=== PATIENT | female | born 2000 | race Caucasian/White ===

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

== ENCOUNTER → 2019-02-16 | Outpatient (CLI) | payer OTHER ==
[~2019-02-16] MED LIST changes: +NAPR-837 PO; -NAPR500T PO
[2019-02-16 13:14] LABS: BASO % 0.3 % (0.0-1.0); EOS # 0.1 10^3/uL (0.0-0.5); EOS % 1.1 % (0.0-3.0); HEMATOCRIT 36.4 % (36.0-47.0); HEMOGLOBIN 12.3 g/dl (12.0-15.5); LYMPH # 1.9 10^3/uL (1.5-5.0); LYMPH % 18.2 % (24.0-44.0); MEAN CORPUSCULAR HGB CONC 33.8 g/dl (32.0-36.5); MEAN CORPUSCULAR VOLUME 94.8 fl (80.0-96.0); MONO # 0.6 10^3/uL (0.0-0.8); MONO % 5.7 % (0.0-5.0); NEUTROPHILS # 7.8 10^3/uL (1.5-8.5); NEUTROPHILS % 74.2 % (36.0-66.0); PLATELET COUNT, AUTOMATED 267 10^3/uL (150-450); RED BLOOD COUNT 3.84 10^6/uL (4.00-5.40); WHITE BLOOD COUNT 10.4 10^3/uL (4.0-10.0)
[2019-02-16 14:40] LABS: CHLAMYDIA DNA AMPLIFICATION NEGATIVE (NEGATIVE); GC DNA AMPLIFICATION NEGATIVE (NEGATIVE)
[2019-02-16 16:06] LABS: HIV 1&2 SCREEN CENTAUR NEGATIVE (NEGATIVE); RUBELLA IgG QUALITATIVE IMMUNE (IMMUNE)
== END ==
LOC: M SMT 10:34
PROVIDERS: ATTEND Advanced Practice Midwife
DX: Z34.01 Encounter for supervision of normal first pregnancy, first trimester (principal); Z36.89 Encounter for other specified antenatal screening

== ENCOUNTER → 2019-03-17 | Outpatient (CLI) | payer OTHER | LOC: M PLALAB 10:13 → M LAB 10:13 | PROVIDERS: ATTEND Specialist | DX: Z13.79 Encounter for other screening for genetic and chromosomal anomalies (principal) ==

== ENCOUNTER → 2019-03-31 | Outpatient (CLI) | payer OTHER | LOC: M PLALAB 09:32 | PROVIDERS: ATTEND Specialist | DX: Z34.82 Encounter for supervision of other normal pregnancy, second trimester (principal); Z3A.00 Weeks of gestation of pregnancy not specified ==

== ENCOUNTER → 2019-04-23 | Outpatient (CLI) | payer OTHER ==
--- NOTE | 2019-04-23 11:49 | REP ---
Clinical: Anatomical evaluation. Comparison: None . Findings: Examination demonstrates a single live intrauterine in cephalic presentation. motion is identified by technologist. Placenta is noted posterior and grade zero without evidence for placenta previa or abruption. Amniotic fluid volume is normal. Cervix measures 4.2 cm in length and appears closed. No evidence for nuchal cord. Gestational age by LMP 18 weeks 0 days with ZENAIDA 09/24/2019 . Gestational age by current measurements 18 weeks 2 days with ZENAIDA 09/22/2019 . FHR equals 144 beats per minute. BPD 4.0 cm 18 weeks 1 day HC 14.8 cm 17 weeks 6 days AC 12.7 cm 18 weeks 2 days FL 2.8 cm 18 weeks 3 days HL 2.8 cm 18 weeks 6 days HC/AC ratio 1.17 Estimated weight 234 grams ( or 59th percentile). Anatomical assessment demonstrates normal structures including cranium, choroid plexus, cavum, cerebellum/posterior fossa, diaphragm, stomach, cord insertion/three-vessel cord, kidneys/bladder, spine, and extremities. Impression: 1. Single live intrauterine in cephalic presentation demonstrating appropriate interval growth. 2. Limited evaluation of the facial features, lungs, four-chamber heart and ventricular outflow tracts. Remainder of the anatomical assessment is complete and normal. Electronically Signed by Samy Christy MD 04/23/2019 11:40 A
== END ==
LOC: M RAD 10:23
PROVIDERS: ATTEND Specialist
DX: Z34.02 Encounter for supervision of normal first pregnancy, second trimester (principal); Z36.89 Encounter for other specified antenatal screening; Z3A.18 18 weeks gestation of pregnancy

== ENCOUNTER → 2019-05-18 | Outpatient (CLI) | payer OTHER ==
--- NOTE | 2019-05-18 07:27 | REP ---
Clinical: Anatomical evaluation. Comparison: 04/23/2019 . Findings: Examination demonstrates a single live intrauterine in variable presentation. motion is identified by technologist. Placenta is noted posterior/fundal and grade I without evidence for placenta previa or abruption. Amniotic fluid volume is normal. Cervix measures 5.0 cm in length and appears closed. No evidence for nuchal cord. Gestational age by LMP 21 weeks 4 days with ZENAIDA 09/24/2019 . Gestational age by current measurements 21 weeks 6 days with ZENAIDA 09/22/2019 . FHR equals 139 beats per minute. Estimated weight 437 grams ( 46 percentile). Anatomical assessment demonstrates normal structures including cranium, choroid plexus, cavum, cerebellum/posterior fossa, facial features, lungs, four-chamber heart/left ventricular outflow tract, diaphragm, stomach, cord insertion/three-vessel cord, kidneys/bladder, spine, and extremities. With the exception of the right cardiac ventricular outflow tract which is incompletely evaluated, the remainder of the anatomical assessment is complete and normal. Impression: Single live intrauterine in variable presentation demonstrating appropriate interval growth. Essentially complete normal anatomical assessment. Electronically Signed by Samy Christy MD 05/18/2019 07:18 A
== END ==
LOC: M RAD 06:04
PROVIDERS: ATTEND Advanced Practice Midwife
DX: Z34.02 Encounter for supervision of normal first pregnancy, second trimester (principal); Z36.89 Encounter for other specified antenatal screening

== ENCOUNTER → 2019-06-16 | Outpatient (CLI) | payer OTHER ==
--- NOTE | 2019-06-16 18:48 | REP ---
OB ULTRASOUND: Real-time sonographic evaluation of the gravid uterus performed. There is a single living intrauterine gestation. The estimated gestational age is 25 weeks 5 days, EDC 09/24/2019. Today's measurements indicate appropriate growth. BPD 65 mm = 26 weeks 1 days, 60th percentile HC 229 mm = 25 weeks 0 days, 33rd percentile AC 223 mm = 26 weeks 5 days, 71st percentile FL 51 mm = 27 weeks 2 days, 85th percentile HC/AC ratio 1.03, within normal range. Estimated weight 974 grams, 71st percentile. Cervix is closed and measures 6 cm in length. heart rate 131 beats per minute. SEEN/GROSSLY UNREMARKABLE Lateral ventricles yes Posterior fossa yes Upper lip yes Four-chamber heart yes LVOT yes RVOT yes Stomach yes Cord insertion yes Three vessel cord yes Kidneys yes Bladder yes Spine yes position: Vertex. Placenta: Posterior and grade 1 with no previa or abruption. Amniotic fluid: Within normal limits. Electronically Signed by Jaden Gutierrez MD 06/16/2019 08:24 P
== END ==
LOC: M RAD 15:34
PROVIDERS: ATTEND Advanced Practice Midwife
DX: Z34.02 Encounter for supervision of normal first pregnancy, second trimester (principal); Z36.89 Encounter for other specified antenatal screening; Z3A.26 26 weeks gestation of pregnancy

== ENCOUNTER → 2019-06-25 | Outpatient (REF) | payer OTHER ==
[2019-06-25 12:29] LABS: HEMATOCRIT 29.4 % (36.0-47.0); HEMOGLOBIN 9.9 g/dl (12.0-15.5); MEAN CORPUSCULAR HEMOGLOBIN 32.8 pg (27.0-33.0); MEAN CORPUSCULAR HGB CONC 33.7 g/dl (32.0-36.5); MEAN CORPUSCULAR VOLUME 97.4 fl (80.0-96.0); PLATELET COUNT, AUTOMATED 223 10^3/uL (150-450); RED BLOOD COUNT 3.02 10^6/uL (4.00-5.40); WHITE BLOOD COUNT 9.3 10^3/uL (4.0-10.0)
== END ==
LOC: M PLALAB 09:27
PROVIDERS: ATTEND Advanced Practice Midwife
DX: Z34.02 Encounter for supervision of normal first pregnancy, second trimester (principal); Z36.89 Encounter for other specified antenatal screening

== ENCOUNTER → 2019-07-08 | Outpatient (CLI) | payer OTHER | LOC: M LAB 07:50 | PROVIDERS: ATTEND Advanced Practice Midwife | DX: Z34.02 Encounter for supervision of normal first pregnancy, second trimester (principal); R73.02 Impaired glucose tolerance (oral) ==

== ENCOUNTER → 2019-09-01 | Outpatient (REF) | payer OTHER ==
[~2019-09-01] MED LIST changes: +ACET-683 PO
== END ==
LOC: M SFHCWAGY 16:47
PROVIDERS: ATTEND Advanced Practice Midwife
DX: Z36.89 Encounter for other specified antenatal screening (principal); Z34.03 Encounter for supervision of normal first pregnancy, third trimester

== ENCOUNTER 2019-09-22 19:20 | Inpatient (IN) | payer OTHER ==
[~2019-09-22] VITALS: Ht 162.6 cm; Wt 98.3 kg
[2019-09-22] VITALS (17 sets, daily range): BP systolic 103–137; BP diastolic 53–83
[~2019-09-22 19:20] MED LIST changes: -ACET-683 PO
[2019-09-22 20:44] LABS: HEMATOCRIT 32.2 % (36.0-47.0); HEMOGLOBIN 10.5 g/dl (12.0-15.5); MEAN CORPUSCULAR HEMOGLOBIN 28.5 pg (27.0-33.0); MEAN CORPUSCULAR HGB CONC 32.6 g/dl (32.0-36.5); MEAN CORPUSCULAR VOLUME 87.3 fl (80.0-96.0); PLATELET COUNT, AUTOMATED 257 10^3/uL (150-450); RED BLOOD COUNT 3.69 10^6/uL (4.00-5.40); WHITE BLOOD COUNT 11.9 10^3/uL (4.0-10.0)
[2019-09-22] MEDS ORDERED: FENTANYL 2MCG/ML ROPIVACAINE 0.2% IN 0.9% NACL 100ML IVBAG As Ordered ONE (21:03)
[2019-09-22] MEDS ORDERED: diphenhydrAMINE 50MG/ML VIAL (J1200) IV PRN (22:00)
[2019-09-22] MEDS ORDERED: REFRIGERATOR IV KEYS XX PRN (22:00)
[2019-09-22] MEDS ORDERED: ePHEDrine SULFATE 25 MG/5 ML(5MG/ML) SYRINGE IV PRN (22:00)
[2019-09-22] MEDS ORDERED: EPIDURAL/PCA KEYS XX PRN (22:00)
[2019-09-22] MEDS ORDERED: FENTANYL/ROPIVACAINE/NACL BAG 100 ML EPIDURAL SCH (22:00)
[2019-09-22] MEDS ORDERED: EPIDURAL COMMENT XX SCH (22:00)
[2019-09-22] MEDS ORDERED: ONDANSETRON 4MG/2ML VIAL IV PRN (22:00)
[2019-09-22] MEDS ORDERED: NALOXONE INJ 0.4MG/1ML VIAL (J2310 PER 1MG) IV PRN (22:00)
[2019-09-22] MEDS ORDERED: LACTATED RINGER'S 1000 ML IV PRN (22:00)
--- NOTE | 2019-09-22 22:51 | HPE ---
DATE OF ADMISSION: 09/22/2019 A 19-year-old 1, para 0 female at 39 and 5/7 weeks gestation by last menstrual period (LMP) consistent with an 8-week ultrasound, estimated date of confinement (EDC) of 09/24/2019 presents with regular uterine contractions that have occurred throughout the entire day. The contractions increased in intensity later in the day. She denies loss of fluid or vaginal bleeding. MEDICAL HISTORY: Noncontributory. SURGICAL HISTORY: 1. Tonsillectomy. 2. Tympanostomy. 3. [place] teeth. ALLERGIES: No known drug allergies. SOCIAL HISTORY: The patient lives in [place]. She denies cigarettes, alcohol or drug use. She used to smoke cigarettes but quit during . FAMILY HISTORY: Noncontributory. PHYSICAL EXAMINATION: Blood pressure is 122/66, pulse 91. General: She appears uncomfortable. Head and neck exam: Normal. Lungs: Clear. Heart: Regular. Abdomen: Nontender, gravid. heart tones: Category 1. Sterile Vaginal Exam: 5 cm, 100%, -1, posterior, soft, vertex, intact. Extremities: Nontender. Contractions: Every 3-4 minutes. LABS: Blood type is O positive, GBS negative. ASSESSMENT: A 19-year-old 1 at 39 and 5/7 weeks gestation, presents in labor. PLAN: The patient is admitted on 09/22/2019.
[2019-09-23] VITALS (25 sets, daily range): BP systolic 94–122; BP diastolic 51–82
[2019-09-23] MEDS ORDERED: LR 1,000 ML IV SCH (00:28)
[2019-09-23] MEDS ORDERED: OXYTOCIN DRIP 30 UNITS in IV 1 EA IV SCH (00:30)
[2019-09-23] MEDS ORDERED: DOCUSATE SODIUM 100 MG CAP PO PRN (07:00)
[2019-09-23] MEDS ORDERED: ACETAMINOPHEN 500 MG TAB PO PRN (07:00)
[2019-09-23] MEDS ORDERED: IBUPROFEN 800 MG TAB PO PRN (07:00)
[2019-09-23] MEDS ORDERED: RHOGAM 300 MCG (1500 IU) INJ (J2790) IM SCH (07:00)
[2019-09-23] MEDS ORDERED: IBUPROFEN 600 MG TAB PO PRN (07:00)
[2019-09-23] MEDS ORDERED: MEASLES,MUMPS,RUBELLA VACCINE INJ (MMR-II) (90707) SC SCH (07:00)
[2019-09-23] MEDS ORDERED: METHYLERGONOVINE MALEATE 0.2 MG TAB PO PRN (07:00)
[2019-09-23] MEDS ORDERED: ACETAMINOPHEN TAB 650MG DOSE (2X325MG) PO PRN (07:00)
[2019-09-23] MEDS ORDERED: LIDOCAINE 1% MDV 20ML VIAL INFIL ONE (07:00)
[2019-09-23] MEDS ORDERED: DIBUCAINE 1% OINTMENT 30GM TOP PRN (07:00)
[2019-09-23] MEDS ORDERED: ONDANSETRON 4MG/2ML VIAL IV PRN (07:00)
[2019-09-23] MEDS ORDERED: OXYTOCIN DRIP 30 UNITS in IV 1 EA IV ONE (07:00)
[2019-09-23] MEDS: PRENATAL VITAMINS CHEWABLE TABLET PO SCH (09:00)
[2019-09-24 06:00] VITALS: BP 106/53
[2019-09-24] MEDS: PRENATAL VITAMINS CHEWABLE TABLET PO SCH (10:21)
[2019-09-24 18:26] VITALS: BP 109/62
[2019-09-25 06:00] VITALS: BP 115/57
[2019-09-25] MEDS ORDERED: ACET-683 PO (06:44)
[2019-09-25] MEDS: PRENATAL VITAMINS CHEWABLE TABLET PO SCH (09:26)
--- NOTE | 2019-09-27 15:51 | DN ---
DATE: 09/23/2019 PREDELIVERY DIAGNOSIS: 39 and 5/7 weeks gestation in labor. POSTDELIVERY DIAGNOSIS: Delivered. PROCEDURE: Spontaneous vaginal delivery. MOLECULAR BIOLOGIST: Adria Chavis MD ANESTHESIA: Epidural. ESTIMATED BLOOD LOSS: 300 mL. FINDINGS: An 8-pound, 4-ounce male infant, scores 8 and 9. DELIVERY SUMMARY: After a one hour and 10-minute second stage of labor, the patient had spontaneous delivery of an 8-pound, 4-ounce male infant, scores 8 and 9 under epidural anesthesia. There was no nuchal cord. The shoulders delivered with ease. The was handed to the mother and cried quickly. The cord was doubly clamped and cut. The placenta delivered spontaneously and appeared to be intact. The patient received IV pitocin after delivery of the placenta. A small second-degree peroneal laceration was repaired under local anesthesia using 2-0 Chromic suture in the usual fashion. Sponge and needle counts were correct.
== END 2019-09-25 12:00 | disposition home or self-care (01) | DRG 560 ==
LOC: M LDO 19:20 → M LDI 20:04 → M OBS 09-23 09:35
PROVIDERS: ADMIT Specialist; ATTEND Specialist
PROC: 10E0XZZ Delivery of Products of Conception, External Approach (ICD-10-PCS; principal; 2019-09-22)
PROC: 0KQM0ZZ Repair Perineum Muscle, Open Approach (ICD-10-PCS; 2019-09-22)
DX: O70.1 Second degree perineal laceration during delivery (principal); Z37.0 Single live birth; Z3A.39 39 weeks gestation of pregnancy

== ENCOUNTER 2019-10-09 19:23 | Emergency (ER) | payer OTHER ==
[~2019-10-09] VITALS: Ht 162.6 cm; Wt 85.9 kg
[2019-10-09 19:23] VITALS: BP 109/59
[~2019-10-09 19:23] MED LIST changes: +ACET-683 PO
== END 2019-10-09 20:10 | disposition home or self-care (01) ==
LOC: M ED 19:23
DX: N61.0 Mastitis without abscess (principal)

== ENCOUNTER → 2020-10-13 | Outpatient (CLI) | payer OTHER, MEDICAID | LOC: M LABSMTC 09:42 | PROVIDERS: ATTEND Anesthesiology | DX: Z01.812 Encounter for preprocedural laboratory examination (principal); Z20.822 Contact with and (suspected) exposure to COVID-19 ==

== ENCOUNTER 2020-10-18 07:47 | Observation (INO) | payer OTHER ==
[~2020-10-18] VITALS: Ht 162.6 cm; Wt 68.4 kg
[~2020-10-18 07:47] MED LIST changes: +LR 1,000 ML IV ONE; +ceFAZolin SOD 1 GM in D5W MINI-BAG PLUS 50 ML IV ONE
[2020-10-18] MEDS ORDERED: propofoL 200 MG/20 ML VIAL As Ordered ONE (09:00)
[2020-10-18] MEDS ORDERED: ROCURONIUM BROMIDE 50 MG/5 ML VIAL As Ordered ONE ×2 (09:00→11:07)
[2020-10-18] MEDS ORDERED: LIDOCAINE 2% 100MG/5ML SDV (FOR ANES.) As Ordered ONE (09:00)
[2020-10-18] MEDS ORDERED: MIDAZOLAM INJ 2MG/2ML VIAL (J2250 PER 1MG) As Ordered ONE (09:00)
[2020-10-18] MEDS ORDERED: fentaNYL 250 MCG/5 ML INJECTION (J3010) As Ordered ONE (09:00)
[2020-10-18] MEDS ORDERED: dexameTHASONE 4 MG/ML 1ML VIAL (J1100 PER 1MG) As Ordered ONE (09:00)
[2020-10-18] MEDS ORDERED: ONDANSETRON 4MG/2ML VIAL As Ordered ONE (09:00)
[2020-10-18 09:12] LABS: HCG, SERUM QUALITATIVE NEGATIVE (NEGATIVE)
[2020-10-18] MEDS ORDERED: ceFAZolin 1GM VIAL (J0690 PER 500MG) As Ordered ONE (09:30)
[2020-10-18] MEDS ORDERED: BUPIVACAINE LIPOSOME/PF 1.3% 20ML VIAL (13.3MG/ML)(EXPAREL)(C9290 PER1MG) As Ordered ONE (09:31)
[2020-10-18] MEDS ORDERED: SUGAMMADEX SODIUM 500 MG/5 ML VIAL (BRIDION) As Ordered ONE (11:04)
[2020-10-18] MEDS ORDERED: HYDROmorphone HCL 2 MG/ML 1ML VIAL (J1170) As Ordered ONE (11:04)
[2020-10-18] MEDS ORDERED: ACETAMINOPHEN 1000MG 100ML IV BTL (OFIRMEV) (J0131 PER 10MG) As Ordered ONE (11:04)
[2020-10-18] MEDS ORDERED: ePHEDrine SULFATE 25 MG/5 ML(5MG/ML) SYRINGE As Ordered ONE (12:53)
--- NOTE | 2020-10-18 14:22 | POST-OPPD ---
Postoperative Procedure Note Date Of Procedure: Oct 18, 2020 PREPROCEDURE DIAGNOSES: Bilateral breast hypertrophy. POSTPROCEDURE DIAGNOSES: same. PROCEDURE PERFORMED: Bilateral breast reduction. SURGEON: Dr Guaman ANESTHESIA: General. ESTIMATED BLOOD LOSS: Approximately 50 mL. COMPLICATIONS: none. FINDINGS: Large breasts. Right larger than left. SPECIMENS REMOVED: Right breast 417gm, Left breast 344gm. KERMIT GUAMAN DO Oct 18, 2020 14:22
--- NOTE | 2020-10-18 14:23 | ROOPDOC ---
[facility] Report Of Operation Report of Operation DATE OF PROCEDURE: 10/18/20 PREPROCEDURE DIAGNOSES: Bilateral breast hypertrophy. POSTPROCEDURE DIAGNOSES: same. PROCEDURE PERFORMED: Bilateral breast reduction. SURGEON: Dr Guaman ANESTHESIA: General. ESTIMATED BLOOD LOSS: Approximately 50 mL. COMPLICATIONS: none. FINDINGS: Large breasts. Right larger than left. SPECIMENS REMOVED: Right breast 417gm, Left breast 344gm. DESCRIPTION OF PROCEDURE: This is a 20-year-old female who upper back and neck pain worsened by large breasts. She is scheduled for bilateral breast reduction. Risks, benefits, and alternatives were discussed with the patient in detail, and she is ready to proceed. The day of surgery, she was marked in the upright position and informed consent was obtained. She measured 33.5 cm on the right and 32.5 cm on the left from sternal notch to nipple, IMF at 23 cm bilaterally. Right side is larger than left. She was brought into the operating room and placed in the supine position. Preoperative antibiotics were given. Sequential pneumatic stocking were placed on the lower calves. General anesthesia was induced. She was prepped and draped in the usual sterile fashion. We started our procedure on the right side. Her nipple areolar complex was outlined 42 mm in diameter, and the patient was marked according superior medial pedicle. We started our incision by scoring the nipple areolar complex area, and then dissection was continued until the inferior lateral portion of the breast was resected. Hemostasis was obtained using electrocautery. The pedicle was de- epithelialized using Morales scissors, good perfusion to the nipple at all times. Wound was irrigated with Bacitracin solution. We used Exparel 6 cc for local anesthesia to infiltrate in the Pectoralis muscle as well as the breast tissue. Sprayed Tissel hemostatic agent was used as well. Than pedicle was turned superior to its new location at 23 cm from sternal notch. The mound was re- created using conforming 0 Vicryl sutures. Pillars were closed with interrupted 3-0 Monocryl sutures. The vertical limb was 7 cm. Excess tissue inferiorly was measured and resected, creating the horizontal scar. Nipple area complex was brought into view through the new opening and sutured in place with 3-0 and 4-0 Monocryl sutures and a 5-0 plain. A 10 mm John-Pompa drain was placed through the lateral portion of the horizontal incision. Then we turned our attention to the left side. Mirror procedure was carried out. Again, resection was done according to superior-medial pedicle using electrocautery and PEEK cautery. Hemostasis was obtained. The pedicle was in good viable condition. Exparel was infiltrated through the pectoralis muscle and the breast tissue 6 cc. Than pedicle was turned superior to its new location at 23 cm from sternal notch. The mound was re-created using conforming 0 Vicryl sutures. Sprayed Tissel hemostatic agent was used as well. Pillars were closed with interrupted 3-0 Monocryl sutures. The vertical limb was 7 cm. Excess tissue inferiorly was measured and resected, creating the horizontal scar. Nipple area complex was brought into view through the new opening and sutured in place with 3-0 and 4-0 Monocryl sutures and a 5-0 plain gut suture in interrupted fashion. A 10 mm John-Pompa drain was placed through the lateral portion of the horizontal incision. Remaining Exparel injected in the horizontal incision. Total Exparel use 20 cc. Resected tissue sent to pathology in two specimens right and left breast tissue. Right breast 417 grams, left breast 344 grams. Dressings were applied to vertical and horizontal incision: Prinio. Nipples areolar complex: Xeroform and a bulky dressing with a surgical bra. Patient was extubated in the operating room without difficulty and was transferred to the recovery room in stable condition. KERMIT GUAMAN DO Oct 18, 2020 14:22
[2020-10-18] MEDS ORDERED: ONDANSETRON 4MG/2ML VIAL IV PRN ×2 (14:25→14:50)
[2020-10-18] MEDS ORDERED: PERCOCET 5MG/325MG TAB PO PRN (14:25)
[2020-10-18] MEDS ORDERED: KETOROLAC TROMETHAMINE 10 MG TAB PO PRN (14:25)
[2020-10-18] MEDS ORDERED: ACETAMINOPHEN TAB 650MG DOSE (2X325MG) PO PRN (14:25)
[2020-10-18] MEDS ORDERED: METOCLOPRAMIDE INJ 10MG/2ML VIAL (J2765 PER 1) IV PRN (14:50)
[2020-10-18] MEDS ORDERED: fentaNYL 100 MCG/2 ML INJECTION (J3010) IV PRN (14:50)
[2020-10-18] MEDS ORDERED: MEPERIDINE INJ 25 MG/ML VIAL (J2175) IV PRN (14:50)
[2020-10-18] MEDS ORDERED: LR 1,000 ML IV SCH (14:50)
[2020-10-18] MEDS ORDERED: oxyCODONE 5MG TAB PO PRN (14:50)
[2020-10-18 15:47] VITALS: BP 108/69
[2020-10-18 16:50] VITALS: BP 125/73
[2020-10-18] MEDS: ceFAZolin SOD 1 GM in D5W MINI-BAG PLUS 50 ML IV SCH (17:51)
[2020-10-18] MEDS: LR 1,000 ML IV SCH (17:52)
[2020-10-18 22:00] VITALS: BP 104/62
[2020-10-19 02:00] VITALS: BP 103/60
[2020-10-19] MEDS: ceFAZolin SOD 1 GM in D5W MINI-BAG PLUS 50 ML IV SCH (02:11)
[2020-10-19] MEDS: LR 1,000 ML IV SCH (03:30)
[2020-10-19 06:00] VITALS: BP 104/61
--- NOTE | 2020-10-19 08:23 | IPNPDOC ---
Subjective General Date Seen: Oct 19, 2020 Subject Chief Complaint/History The patient is a 20-year-old female admitted with a reason for visit of Bilateral Breast Hypertrophy. Patient status post bilateral breast reduction. Postop day 1. She is doing well, pain controlled with Toradol and Tylenol. Current Medications Current Medications Current Medications Medications (Trade) Dose Ordered Sig/Arsalan Route PRN Reason Start Time Stop Time Status Last Admin Dose Admin Acetaminophen (Tylenol Tab) 650 mg Q6H PRN PO MILD PAIN (PS 1-4) 10/18/20 14:25 10/19/20 07:49 Cefazolin Sodium 1 gm/Dextrose 50 ml @ 100 mls/hr Q8H IV 10/18/20 18:00 10/19/20 02:11 Fentanyl Citrate (Sublimaze) 25 mcg Q5MP PRN IV PAIN LEVEL 5-10 10/18/20 14:50 Ketorolac Tromethamine (ToRADol) 10 mg Q6HP PRN PO MODERATE PAIN (PS 5-7) 10/18/20 14:25 10/23/20 14:24 Lactated Ringer's 1,000 ml @ 75 mls/hr [id number] IV 10/18/20 14:25 10/19/20 03:30 Lactated Ringer's 1,000 ml @ 100 mls/hr Q10H IV 10/18/20 14:50 10/18/20 16:50 DC 10/18/20 15:08 Meperidine HCl (Demerol) 12.5 mg Q5MP PRN IV SHIVERING 10/18/20 14:50 10/18/20 16:50 DC Metoclopramide HCl (REGLAN INJection) 10 mg Q6HP PRN IV NAUSEA OR VOMITING 10/18/20 14:50 10/18/20 16:50 DC Ondansetron HCl (ZOFRAN INJection) 4 mg Q4H PRN IV NAUSEA OR VOMITING 10/18/20 14:25 Ondansetron HCl (ZOFRAN INJection) 4 mg Q4HP PRN IV NAUSEA OR VOMITING 10/18/20 14:50 10/18/20 16:50 DC Oxycodone HCl (Roxicodone, Oxyir) 5 mg ASDIRECTED PRN PO PAIN LEVEL 1-4 10/18/20 14:50 10/18/20 16:50 DC 10/18/20 14:59 Oxycodone/ Acetaminophen (Percocet 5mg/ 325mg Tablet) 2 tab Q4HP PRN PO PAIN LEVEL 8-10 10/18/20 14:25 Allergies Coded Allergies: bee pollen (Verified Allergy, Intermediate, edema, cellulitis, 10/10/20) Objective Physical Examination Examination GENERAL APPEARANCE:Patient seen, laying in bed, awake, alert, and oriented. Comfortable, in no acute distress. SKIN: Warm and moist. BREAST: Right and left soft, non-tender incisions intact. KENDRA drains: [id number] cc/24 hr. NAC: Viable, warm, symmetrical, mild post-op ecchymosis, no expanding hematoma. LUNGS: Clear to auscultation bilaterally. No wheezing appreciated. HEART: No chest wall abnormalities. Regular rate and rhythm with no murmurs appreciated. ABDOMEN: Abdomen is soft, non-tender, non-distended. EXTREMITIES: No edema identified. No calf tenderness. Vital Signs Vital Signs Date Time Temp Pulse Resp B/P (MAP) Pulse Ox O2 Delivery O2 Flow Rate FiO2 10/19/20 06:00 97.9 70 16 104/61 (75) 97 Room Air 10/18/20 14:30 2.0 I&Os I&O- Last 24 Hours up to 6 AM 10/19/20 06:00 Intake Total 2440 ml Output Total 1165 ml Balance 1275 ml Laboratory Data Labs 24H Laboratory Tests 2 10/18/20 08:30: Human Chorionic Gonadotropin, Qual NEGATIVE Impression Status post bilateral breast reduction. Stable for discharge. Monitor drains at home. Instructions given for home care. Follow-up plastic surgery after discharge. Plan / VTE VTE Prophylaxis Ordered?: Yes KERMIT GUAMAN DO Oct 19, 2020 08:23
== END 2020-10-19 10:15 | disposition home or self-care (01) ==
LOC: M SDC 07:47 → M MS5PR 14:29 → M SDC 15:30 → M MS5PR 10-19 10:15 → M SDC 10-19 10:15
PROVIDERS: ADMIT Plastic Surgery Surgery of the Hand; ATTEND Plastic Surgery Surgery of the Hand
DX: N62 Hypertrophy of breast (principal); F41.9 Anxiety disorder, unspecified; Z91.030 Bee allergy status
CPT/HCPCS: 19318; 84703; 88305; 96365; 96366; C9290; J0131; J0690; J1100; J1170; J2250; J2405; J3010

== ENCOUNTER 2021-05-29 12:33 | Emergency (ER) | payer MEDICAID, OTHER ==
[~2021-05-29] VITALS: Ht 160 cm; Wt 64.2 kg
[~2021-05-29 12:33] MED LIST changes: -LR 1,000 ML IV ONE; -ceFAZolin SOD 1 GM in D5W MINI-BAG PLUS 50 ML IV ONE
[2021-05-29] MEDS ORDERED: ONDANSETRON 4MG/2ML VIAL IV ONE (15:05)
[2021-05-29] MEDS ORDERED: NS 1,000 ML IV ONE (15:05)
[2021-05-29 15:58] LABS: BASO % 0.8 % (0.0-1.0); EOS # 0.1 10^3/uL (0.0-0.5); EOS % 2.3 % (0.0-3.0); HEMATOCRIT 40.9 % (36.0-47.0); HEMOGLOBIN 13.7 g/dl (12.0-15.5); LYMPH % 49.4 % (24.0-44.0); MEAN CORPUSCULAR HEMOGLOBIN 30.9 pg (27.0-33.0); MEAN CORPUSCULAR HGB CONC 33.5 g/dl (32.0-36.5); MEAN CORPUSCULAR VOLUME 92.1 fl (80.0-96.0); MONO # 0.4 10^3/uL (0.0-0.8); MONO % 8.8 % (2.0-8.0); NEUTROPHILS # 1.6 10^3/uL (1.5-8.5); NEUTROPHILS % 38.7 % (36.0-66.0); PLATELET COUNT, AUTOMATED 179 10^3/uL (150-450); RED BLOOD COUNT 4.44 10^6/uL (4.00-5.40)
[2021-05-29 16:19] LABS: ALBUMIN 4.1 GM/DL (3.2-5.2); ALT/SGPT 19 U/L (12-78); BILIRUBIN,DIRECT < 0.1 MG/DL (0.0-0.2); BILIRUBIN,TOTAL 0.1 MG/DL (0.2-1.0); LIPASE 49 U/L (73-393); TOTAL PROTEIN 7.2 GM/DL (6.4-8.2)
[2021-05-29] MEDS ORDERED: ONDA4TAB6 PO (16:42)
[2021-05-29 16:46] VITALS: BP 108/59
== END 2021-05-29 16:59 | disposition home or self-care (01) ==
LOC: M ED 12:33
DX: R11.2 Nausea with vomiting, unspecified (principal); R19.7 Diarrhea, unspecified; Z86.16 Personal history of COVID-19; R01.1 Cardiac murmur, unspecified; J30.1 Allergic rhinitis due to pollen

== ENCOUNTER → 2021-07-27 | Outpatient (REF) | payer OTHER, MEDICAID ==
[~2021-07-27] MED LIST changes: +ONDA4TAB6 PO
== END ==
LOC: M LAB REF 15:16
PROVIDERS: ATTEND Physician Assistant
DX: R50.9 Fever, unspecified (principal); R05.9 Cough, unspecified; R09.81 Nasal congestion

== ENCOUNTER → 2021-09-08 | Outpatient (REF) | payer OTHER, MEDICAID ==
[2021-09-08 17:10] LABS: URINE PREG TEST NEGATIVE (NEGATIVE)
[2021-09-08 18:32] LABS: GC DNA AMPLIFICATION NEGATIVE (NEGATIVE)
== END ==
LOC: M LAB REF 16:20
PROVIDERS: ATTEND Physician Assistant Medical
DX: R30.0 Dysuria (principal); R10.2 Pelvic and perineal pain

== ENCOUNTER 2021-09-14 18:56 | Emergency (ER) | payer OTHER, MEDICAID ==
[~2021-09-14] VITALS: Ht 162.6 cm; Wt 63.3 kg
[2021-09-14 18:57] VITALS: BP 122/75
== END 2021-09-14 22:34 | disposition home or self-care (01) ==
LOC: M ED 18:56
DX: N93.8 Other specified abnormal uterine and vaginal bleeding (principal); Z91.030 Bee allergy status

== ENCOUNTER → 2021-10-20 | Outpatient (REF) | payer OTHER | LOC: M PLALAB 08:14 | PROVIDERS: ATTEND Specialist | DX: Z53.9 Procedure and treatment not carried out, unspecified reason (principal) ==

== ENCOUNTER → 2021-11-10 | Outpatient (REF) | payer OTHER ==
[2021-11-10 17:45] LABS: APPEARANCE, URINE CLEAR (CLEAR); BACTERIA, URINE AUTO NEGATIVE (NEGATIVE); BILIRUBIN, URINE AUTO NEGATIVE (NEGATIVE); BLOOD, URINE BLOOD 1+ (NEGATIVE); COLOR, URINE STRAW (YELLOW); GLUCOSE, URINE (UA) AUTO NEGATIVE (NEGATIVE); KETONE, URINE AUTO NEGATIVE (NEGATIVE); LEUKOCYTE ESTERASE, URINE AUTO NEGATIVE (NEGATIVE); NITRITE, URINE AUTO NEGATIVE (NEGATIVE); PROTEIN, URINE AUTO NEGATIVE (NEGATIVE); RBC, URINE AUTO 0 /HPF (0-3); SPECIFIC GRAVITY URINE AUTO 1.004 (1.002-1.035); SQUAMOUS EPITHELIAL CELL UR AU 0 /HPF (0-6); UROBILINOGEN, URINE AUTO 0.2 mg/dL (0.0-2.0); WBC, URINE AUTO 0 /HPF (0-3)
== END ==
LOC: M LAB REF 16:29
PROVIDERS: ATTEND Physician Assistant
DX: N39.0 Urinary tract infection, site not specified (principal)

== ENCOUNTER 2021-12-16 13:27 | Emergency (ER) | payer OTHER ==
[~2021-12-16] VITALS: Ht 160 cm; Wt 63.0 kg
[2021-12-16 13:28] VITALS: BP 118/71
[2021-12-16] MEDS ORDERED: diphenhydrAMINE 25MG CAP PO ONE (13:45)
== END 2021-12-16 14:50 | disposition home or self-care (01) ==
LOC: M ED 13:27
DX: T63.441A Toxic effect of venom of bees, accidental (unintentional), initial encounter (principal); F17.290 Nicotine dependence, other tobacco product, uncomplicated; Z91.030 Bee allergy status

== ENCOUNTER → 2022-02-01 | Outpatient (REF) | payer OTHER | LOC: M LAB REF 16:25 | PROVIDERS: ATTEND Physician Assistant | DX: M79.10 Myalgia, unspecified site (principal) ==

== ENCOUNTER → 2022-03-05 | Outpatient (REF) | payer OTHER ==
[2022-03-05 23:13] LABS: RSV AMPLIFICATION NEGATIVE (NEGATIVE)
== END ==
LOC: M LAB REF 22:18
PROVIDERS: ATTEND Physician Assistant Medical
DX: R05.9 Cough, unspecified (principal)

== ENCOUNTER → 2022-04-25 | Outpatient (REF) | payer OTHER ==
[2022-04-25 18:01] LABS: BASO # 0.1 10^3/uL (0.0-0.2); BASO % 0.6 % (0.0-1.0); EOS # 0.3 10^3/uL (0.0-0.5); EOS % 3.1 % (0.0-3.0); HEMATOCRIT 35.7 % (36.0-47.0); HEMOGLOBIN 11.6 g/dl (12.0-15.5); LYMPH # 2.6 10^3/uL (1.5-5.0); LYMPH % 25.9 % (24.0-44.0); MEAN CORPUSCULAR HEMOGLOBIN 31.7 pg (27.0-33.0); MEAN CORPUSCULAR HGB CONC 32.5 g/dl (32.0-36.5); MEAN CORPUSCULAR VOLUME 97.5 fl (80.0-96.0); MONO # 0.7 10^3/uL (0.0-0.8); MONO % 7.3 % (2.0-8.0); NEUTROPHILS # 6.3 10^3/uL (1.5-8.5); NEUTROPHILS % 62.8 % (36.0-66.0); PLATELET COUNT, AUTOMATED 263 10^3/uL (150-450); RED BLOOD COUNT 3.66 10^6/uL (4.00-5.40)
[2022-04-25 18:31] LABS: ALBUMIN 4.1 G/DL (3.2-5.2); ALKALINE PHOSPHATASE 72 U/L (46-116); ALT/SGPT 13 U/L (7.0-40); AST/SGOT 16 U/L (<34); BILIRUBIN,TOTAL 0.2 MG/DL (0.3-1.2); BLOOD UREA NITROGEN 9 MG/DL (9-23); CALCIUM LEVEL 9.3 MG/DL (8.5-10.1); CARBON DIOXIDE LEVEL 29 MMOL/L (20-31); CHLORIDE LEVEL 102 MMOL/L (98-107); CREATININE FOR GFR 0.53 MG/DL (0.55-1.30); GLOMERULAR FILTRATION RATE > 60.0 (>60); GLUCOSE, FASTING 80 MG/DL (60-100); POTASSIUM SERUM 4.4 MMOL/L (3.5-5.1); SODIUM LEVEL 139 MMOL/L (136-145); TOTAL PROTEIN 7.1 G/DL (5.7-8.2)
[2022-04-25 18:36] LABS: HCG, SERUM QUALITATIVE NEGATIVE (NEGATIVE)
[2022-04-25 19:40] LABS: GC DNA AMPLIFICATION NEGATIVE (NEGATIVE)
[2022-04-25 21:20] LABS: APPEARANCE, URINE MANUAL CLEAR (CLEAR); BILIRUBIN, URINE MANUAL NEGATIVE (NEGATIVE); BLOOD URINE MANUAL POSITIVE (NEGATIVE); COLOR, URINE MANUAL COLORLESS (YELLOW); GLUCOSE, URINE (UA) MANUAL NEGATIVE (NEGATIVE); KETONE, URINE MANUAL NEGATIVE (NEGATIVE); LEUKOCYTE ESTERASE, URINE MAN NEGATIVE (NEGATIVE); NITRITE, URINE MANUAL NEGATIVE (NEGATIVE); PROTEIN, URINE MANUAL NEGATIVE (NEGATIVE); SPECIFIC GRAVITY,URINE MANUAL 1.005 (1.002-1.035); UROBILINOGEN, URINE MANUAL NORMAL (NORMAL)
[2022-04-25 22:03] LABS: SQUAMOUS EPITHELIAL CELL URINE SMALL AMOUNT /hpf (SMALL AMT)
[2022-04-25 22:04] LABS: BACTERIA, URINE NONE SEEN; HYALINE CAST, URINE NONE SEEN /lpf (0-1)
== END ==
LOC: M SFHCPLAZ 16:55
PROVIDERS: ATTEND Nurse Practitioner Family
DX: Z00.00 Encounter for general adult medical examination without abnormal findings (principal); N39.0 Urinary tract infection, site not specified

== ENCOUNTER 2022-06-18 15:56 | Emergency (ER) | payer OTHER, MEDICAID ==
[~2022-06-18] VITALS: Ht 162.6 cm; Wt 70.2 kg
[2022-06-18 17:39] VITALS: BP 121/59
== END 2022-06-18 17:40 | disposition home or self-care (01) ==
LOC: M ED 15:56
DX: B34.2 Coronavirus infection, unspecified (principal); F41.9 Anxiety disorder, unspecified; Z91.030 Bee allergy status

== ENCOUNTER → 2022-07-12 | Outpatient (CLI) | payer OTHER ==
[~2022-07-12] MED LIST changes: +MULTTAB20 PO
[2022-07-12 13:16] LABS: HEMATOCRIT 31.8 % (36.0-47.0); HEMOGLOBIN 10.9 g/dl (12.0-15.5); MEAN CORPUSCULAR HEMOGLOBIN 32.6 pg (27.0-33.0); MEAN CORPUSCULAR HGB CONC 34.3 g/dl (32.0-36.5); MEAN CORPUSCULAR VOLUME 95.2 fl (80.0-96.0); PLATELET COUNT, AUTOMATED 245 10^3/uL (150-450); RED BLOOD COUNT 3.34 10^6/uL (4.00-5.40); WHITE BLOOD COUNT 7.2 10^3/uL (4.0-10.0)
[2022-07-12 13:52] LABS: HIV 1&2 SCREEN CENTAUR NEGATIVE (NEGATIVE)
[2022-07-12 14:00] LABS: HEPATITIS C VIRUS ABY INDEX 0.1 INDEX (<0.8)
== END ==
LOC: M PLALAB 10:31
PROVIDERS: ATTEND Advanced Practice Midwife
DX: Z34.82 Encounter for supervision of other normal pregnancy, second trimester (principal)

== ENCOUNTER → 2022-07-12 | Outpatient (REF) | payer OTHER ==
[2022-07-12 22:36] LABS: GC DNA AMPLIFICATION NEGATIVE (NEGATIVE)
== END ==
LOC: M PLALAB 13:23
PROVIDERS: ATTEND Advanced Practice Midwife
DX: Z34.82 Encounter for supervision of other normal pregnancy, second trimester (principal)

== ENCOUNTER 2022-07-17 10:52 | Emergency (ER) | payer OTHER ==
[~2022-07-17] VITALS: Ht 162.6 cm; Wt 69.3 kg
[~2022-07-17 10:52] MED LIST changes: -MULTTAB20 PO
[2022-07-17] MEDS ORDERED: MULTTAB20 PO (10:58)
[2022-07-17 12:01] LABS: BASO % 0.4 % (0.0-1.0); EOS # 0.1 10^3/uL (0.0-0.5); HEMATOCRIT 37.3 % (36.0-47.0); HEMOGLOBIN 12.5 g/dl (12.0-15.5); LYMPH # 0.8 10^3/uL (1.5-5.0); MEAN CORPUSCULAR HEMOGLOBIN 31.5 pg (27.0-33.0); MEAN CORPUSCULAR HGB CONC 33.5 g/dl (32.0-36.5); MONO # 0.4 10^3/uL (0.0-0.8); MONO % 5.3 % (2.0-8.0); NEUTROPHILS # 5.6 10^3/uL (1.5-8.5); PLATELET COUNT, AUTOMATED 201 10^3/uL (150-450); RED BLOOD COUNT 3.97 10^6/uL (4.00-5.40); WHITE BLOOD COUNT 6.9 10^3/uL (4.0-10.0)
[2022-07-17 12:22] LABS: BLOOD UREA NITROGEN 6 MG/DL (9-23); CALCIUM LEVEL 8.9 MG/DL (8.5-10.1); CARBON DIOXIDE LEVEL 24 MMOL/L (20-31); CHLORIDE LEVEL 103 MMOL/L (98-107); CREATININE FOR GFR 0.39 MG/DL (0.55-1.30); GLOMERULAR FILTRATION RATE > 60.0 (>60); GLUCOSE, FASTING 85 MG/DL (60-100); POTASSIUM SERUM 3.6 MMOL/L (3.5-5.1); SODIUM LEVEL 136 MMOL/L (136-145)
[2022-07-17 12:26] LABS: FREE T4 1.03 NG/DL (0.89-1.76); THYROID STIMULATING HORMONE 0.418 uIU/ML (0.55-4.78)
[2022-07-17 13:05] VITALS: BP 107/57
[2022-07-17] MEDS ORDERED: NS 1,000 ML IV ONE (13:20)
[2022-07-17] MEDS ORDERED: ACETAMINOPHEN 1000MG 100ML IV BAG IV ONE (13:20)
[2022-07-17 14:54] LABS: RSV AMPLIFICATION NEGATIVE (NEGATIVE)
== END 2022-07-17 15:20 | disposition home or self-care (01) ==
LOC: M ED 10:52
DX: U07.1 COVID-19 (principal); Z91.030 Bee allergy status
CPT/HCPCS: 80048; 81001; 84439; 84443; 85025; 87631; 93005; 96361; 96374; 99284; J0131

== ENCOUNTER → 2022-07-20 | Outpatient (CLI) | payer OTHER ==
[~2022-07-20] MED LIST changes: +MULTTAB20 PO
== END ==
LOC: M PLALAB 13:47
PROVIDERS: ATTEND Advanced Practice Midwife
DX: Z34.80 Encounter for supervision of other normal pregnancy, unspecified trimester (principal)

== ENCOUNTER 2022-09-16 17:26 | Emergency (ER) | payer OTHER ==
[~2022-09-16] VITALS: Ht 162.6 cm; Wt 74.4 kg
[2022-09-16 19:09] LABS: APPEARANCE, URINE CLEAR (CLEAR); BACTERIA, URINE AUTO NEGATIVE (NEGATIVE); BILIRUBIN, URINE AUTO NEGATIVE (NEGATIVE); BLOOD, URINE BLOOD NEGATIVE (NEGATIVE); COLOR, URINE STRAW (YELLOW); GLUCOSE, URINE (UA) AUTO 1+ mg/dL (NEGATIVE); KETONE, URINE AUTO 1+ mg/dL (NEGATIVE); LEUKOCYTE ESTERASE, URINE AUTO NEGATIVE (NEGATIVE); NITRITE, URINE AUTO NEGATIVE (NEGATIVE); PROTEIN, URINE AUTO NEGATIVE (NEGATIVE); RBC, URINE AUTO 0 /HPF (0-3); SPECIFIC GRAVITY URINE AUTO 1.006 (1.002-1.035); SQUAMOUS EPITHELIAL CELL UR AU 3 /HPF (0-6); UROBILINOGEN, URINE AUTO 0.2 mg/dL (0.0-2.0); WBC, URINE AUTO 0 /HPF (0-3)
[2022-09-16] MEDS ORDERED: ACETAMINOPHEN TAB 650MG DOSE (2X325MG) PO ONE (21:35)
[2022-09-16 22:02] LABS: BASO % 0.4 % (0.0-1.0); EOS # 0.2 10^3/uL (0.0-0.5); EOS % 2.4 % (0.0-3.0); HEMATOCRIT 29.5 % (36.0-47.0); HEMOGLOBIN 10.1 g/dl (12.0-15.5); LYMPH # 2.6 10^3/uL (1.5-5.0); LYMPH % 32.2 % (24.0-44.0); MEAN CORPUSCULAR HEMOGLOBIN 32.4 pg (27.0-33.0); MEAN CORPUSCULAR HGB CONC 34.2 g/dl (32.0-36.5); MEAN CORPUSCULAR VOLUME 94.6 fl (80.0-96.0); MONO # 0.7 10^3/uL (0.0-0.8); MONO % 8.4 % (2.0-8.0); NEUTROPHILS # 4.5 10^3/uL (1.5-8.5); NEUTROPHILS % 56.3 % (36.0-66.0); PLATELET COUNT, AUTOMATED 193 10^3/uL (150-450); RED BLOOD COUNT 3.12 10^6/uL (4.00-5.40)
[2022-09-16 23:18] LABS: GC DNA AMPLIFICATION NEGATIVE (NEGATIVE)
[2022-09-16] MEDS ORDERED: ACET325C5 PO (23:51)
[2022-09-17 00:38] VITALS: BP 110/65
== END 2022-09-17 00:40 | disposition home or self-care (01) ==
LOC: M ED 17:26
DX: O26.892 Other specified pregnancy related conditions, second trimester (principal); Z3A.18 18 weeks gestation of pregnancy; Z91.030 Bee allergy status

== ENCOUNTER → 2022-09-19 | Outpatient (CLI) | payer OTHER ==
[~2022-09-19] MED LIST changes: +ACET325C5 PO
== END ==
LOC: M RAD 10:49
PROVIDERS: ATTEND Advanced Practice Midwife
DX: Z34.81 Encounter for supervision of other normal pregnancy, first trimester (principal); Z3A.18 18 weeks gestation of pregnancy

== ENCOUNTER → 2022-11-16 | Outpatient (CLI) | payer OTHER | LOC: M WHC 13:10 | PROVIDERS: ATTEND Obstetrics & Gynecology | DX: O36.8320 Maternal care for abnormalities of the fetal heart rate or rhythm, second trimester, not applicable or unspecified (principal); Z3A.27 27 weeks gestation of pregnancy ==

== ENCOUNTER → 2022-11-23 | Outpatient (CLI) | payer OTHER | LOC: M WHC 13:03 | PROVIDERS: ATTEND Obstetrics & Gynecology | DX: O36.8330 Maternal care for abnormalities of the fetal heart rate or rhythm, third trimester, not applicable or unspecified (principal); Z3A.28 28 weeks gestation of pregnancy ==

== ENCOUNTER → 2022-11-30 | Outpatient (CLI) | payer OTHER | LOC: M WHC 13:10 | PROVIDERS: ATTEND Obstetrics & Gynecology | DX: O36.8390 Maternal care for abnormalities of the fetal heart rate or rhythm, unspecified trimester, not applicable or unspecified (principal) ==

== ENCOUNTER → 2022-12-07 | Outpatient (CLI) | payer OTHER | LOC: M WHC 12:46 | PROVIDERS: ATTEND Obstetrics & Gynecology | DX: O36.8390 Maternal care for abnormalities of the fetal heart rate or rhythm, unspecified trimester, not applicable or unspecified (principal) ==

== ENCOUNTER → 2022-12-14 | Outpatient (CLI) | payer OTHER | LOC: M WHC 13:10 | PROVIDERS: ATTEND Obstetrics & Gynecology | DX: O36.8390 Maternal care for abnormalities of the fetal heart rate or rhythm, unspecified trimester, not applicable or unspecified (principal) ==

== ENCOUNTER → 2022-12-20 | Outpatient (CLI) | payer OTHER | LOC: M WHC 13:34 | PROVIDERS: ATTEND Obstetrics & Gynecology | DX: O36.8 Maternal care for other specified fetal problems (principal); Z3A.32 32 weeks gestation of pregnancy ==

== ENCOUNTER → 2022-12-20 | Outpatient (CLI) | payer OTHER ==
[2022-12-20 17:07] LABS: HEMATOCRIT 30.6 % (36.0-47.0); HEMOGLOBIN 10.2 g/dl (12.0-15.5); MEAN CORPUSCULAR HEMOGLOBIN 30.4 pg (27.0-33.0); MEAN CORPUSCULAR HGB CONC 33.3 g/dl (32.0-36.5); MEAN CORPUSCULAR VOLUME 91.1 fl (80.0-96.0); PLATELET COUNT, AUTOMATED 207 10^3/uL (150-450); RED BLOOD COUNT 3.36 10^6/uL (4.00-5.40); WHITE BLOOD COUNT 10.5 10^3/uL (4.0-10.0)
[2022-12-20 18:28] LABS: GC DNA AMPLIFICATION NEGATIVE (NEGATIVE)
== END ==
LOC: M PLALAB 13:41
PROVIDERS: ATTEND Obstetrics & Gynecology
DX: Z34.92 Encounter for supervision of normal pregnancy, unspecified, second trimester (principal)

== ENCOUNTER → 2023-01-02 | Outpatient (CLI) | payer OTHER | LOC: M LAB 08:48 | PROVIDERS: ATTEND Obstetrics & Gynecology | DX: O99.810 Abnormal glucose complicating pregnancy (principal); Z3A.00 Weeks of gestation of pregnancy not specified ==

== ENCOUNTER → 2023-01-04 | Outpatient (CLI) | payer OTHER | LOC: M WHC 15:02 | PROVIDERS: ATTEND Obstetrics & Gynecology | DX: O36.8390 Maternal care for abnormalities of the fetal heart rate or rhythm, unspecified trimester, not applicable or unspecified (principal) ==

== ENCOUNTER → 2023-01-11 | Outpatient (CLI) | payer OTHER | LOC: M WHC 15:12 | PROVIDERS: ATTEND Obstetrics & Gynecology | DX: O36.8390 Maternal care for abnormalities of the fetal heart rate or rhythm, unspecified trimester, not applicable or unspecified (principal); Z3A.00 Weeks of gestation of pregnancy not specified ==

== ENCOUNTER → 2023-01-25 | Outpatient (CLI) | payer OTHER | LOC: M WHC 15:01 | PROVIDERS: ATTEND Obstetrics & Gynecology | DX: O36.8330 Maternal care for abnormalities of the fetal heart rate or rhythm, third trimester, not applicable or unspecified (principal); Z3A.37 37 weeks gestation of pregnancy ==

== ENCOUNTER → 2023-02-01 | Outpatient (CLI) | payer OTHER | LOC: M WHC 15:34 | PROVIDERS: ATTEND Obstetrics & Gynecology | DX: O36.8930 Maternal care for other specified fetal problems, third trimester, not applicable or unspecified (principal); Z3A.30 30 weeks gestation of pregnancy ==

== ENCOUNTER 2023-02-03 11:37 | Outpatient (CLI) | payer OTHER ==
[~2023-02-03] VITALS: Ht 162.6 cm; Wt 87.6 kg
[2023-02-03] MEDS ORDERED: HOME MED LIST COMPLETE! XX SCH (11:50)
[2023-02-03 11:53] VITALS: BP 120/63
== END 2023-02-03 14:14 | disposition home or self-care (01) ==
LOC: M LDO 11:37
PROVIDERS: ATTEND Obstetrics & Gynecology
DX: O47.1 False labor at or after 37 completed weeks of gestation (principal); Z3A.38 38 weeks gestation of pregnancy
CPT/HCPCS: 59025; G0463

== ENCOUNTER → 2023-06-09 | Outpatient (REF) | payer OTHER | LOC: M LAB REF 17:29 | PROVIDERS: ATTEND Physician Assistant Medical | DX: B34.9 Viral infection, unspecified (principal) ==

== ENCOUNTER → 2023-08-28 | Outpatient (CLI) | payer OTHER | LOC: M WHC 07:01 | PROVIDERS: ATTEND Physician Assistant | DX: R10.2 Pelvic and perineal pain (principal) ==

== ENCOUNTER → 2023-11-20 | Outpatient (REF) | payer OTHER, MEDICAID ==
[~2023-11-20] MED LIST changes: +ONDA-282 PO; -ONDA4TAB6 PO
[2023-11-20 17:58] LABS: APPEARANCE, URINE CLEAR (CLEAR); BACTERIA, URINE AUTO NEGATIVE (NEGATIVE); BILIRUBIN, URINE AUTO NEGATIVE (NEGATIVE); BLOOD, URINE BLOOD NEGATIVE (NEGATIVE); COLOR, URINE STRAW (YELLOW); GLUCOSE, URINE (UA) AUTO NEGATIVE (NEGATIVE); KETONE, URINE AUTO NEGATIVE (NEGATIVE); LEUKOCYTE ESTERASE, URINE AUTO NEGATIVE (NEGATIVE); NITRITE, URINE AUTO NEGATIVE (NEGATIVE); PROTEIN, URINE AUTO NEGATIVE (NEGATIVE); RBC, URINE AUTO 0 /HPF (0-3); SPECIFIC GRAVITY URINE AUTO 1.006 (1.002-1.035); SQUAMOUS EPITHELIAL CELL UR AU 0 /HPF (0-6); UROBILINOGEN, URINE AUTO 0.2 mg/dL (0.0-2.0); WBC, URINE AUTO 0 /HPF (0-3)
== END ==
LOC: M LAB REF 16:36
PROVIDERS: ATTEND Physician Assistant
DX: N39.0 Urinary tract infection, site not specified (principal)

== ENCOUNTER → 2023-12-12 | Outpatient (REF) | payer OTHER ==
[2023-12-12 23:09] LABS: RSV AMPLIFICATION NEGATIVE (NEGATIVE)
== END ==
LOC: M LAB REF 21:54
PROVIDERS: ATTEND Physician Assistant
DX: B34.9 Viral infection, unspecified (principal)

== ENCOUNTER → 2024-02-10 | Outpatient (REF) | payer OTHER | LOC: M LAB REF 16:08 | PROVIDERS: ATTEND Physician Assistant Medical | DX: B34.9 Viral infection, unspecified (principal) ==